=== PATIENT | male | born 1955 | race African-American/Black ===

== ENCOUNTER 2020-09-02 09:51 | Emergency (ER) | payer OTHER, BC ==
[2020-09-02 10:33] LABS: BASOPHILS % (AUTO) 0.8 % (0.0-5.0); EOSINOPHILS % (AUTO) 0.8 % (0.0-8.0); HEMATOCRIT 42.9 % (42-54); LYMPHOCYTES % (AUTO) 22.7 % (21.0-51.0); MEAN CORPUSCULAR HEMOGLOBIN 30.6 pg (27.0-33.0); MEAN CORPUSCULAR HGB CONC 34.7 g/dL (32.0-36.0); MEAN CORPUSCULAR VOLUME 88.1 fL (79-99); MONOCYTES % (AUTO) 9.1 % (3.0-13.0); NEUTROPHILS % (AUTO) 66.3 % (40.0-77.0); PLATELET COUNT (AUTO) 250 K/uL (130-400); RED BLOOD CELL COUNT(AUTO) 4.87 MIL/uL (4.50-6.20); RED CELL DISTRIBUTION WIDTH 12.9 % (11.0-15.5); WHITE BLOOD COUNT (AUTO) 3.8 K/uL (4.8-10.8)
[2020-09-02 10:46] LABS: INR 1.03 (0.85-1.15); PARTIAL THROMBOPLASTIN TIME 24.3 SEC (26.3-35.5); PROTHROMBIN TIME 11.1 SEC (9.6-11.6)
[2020-09-02 10:51] LABS: ALBUMIN 3.9 g/dL (3.5-5.0); BILIRUBIN,TOTAL 1.5 mg/dL (0.2-1.0); POTASSIUM 4.5 mmol/L (3.5-5.1); TOTAL PROTEIN, SERUM 7.2 g/dL (6.0-8.3)
[2020-09-02 10:56] LABS: B-TYPE NATRIURETIC PEPTIDE 6 pg/mL (0-100)
[2020-09-02 11:05] LABS: APPEARANCE,URINE CLOUDY (CLEAR); BILIRUBIN,URINE NEGATIVE (NEGATIVE); COLOR,URINE YELLOW (YELLOW); GLUCOSE, URINE (UA) NEGATIVE (NEGATIVE); KETONES,URINE NEGATIVE (NEGATIVE); LEUKOCYTE ESTERASE ,URINE LARGE (NEGATIVE); NITRATE,URINE POSITIVE (NEGATIVE); OCCULT BLOOD,URINE MODERATE (NEGATIVE); PH,URINE 6.5 (5.0-8.0); PROTEIN,URINE 100 mg/dL (NEGATIVE); UROBILINOGEN,URINE 0.2 mg/dL (0.2-1.0)
[2020-09-02] MEDS ORDERED: SODIUM CHLORIDE 0.9% 1000ML 1,000 ML IV ONE (11:22)
[2020-09-02 11:23] LABS: BACTERIA,URINE Many /HPF (None Seen); SQUAMOUS EPITHELIAL CELL,UR Rare /HPF (0-2); WBC,URINE 26-50 /HPF (0-1)
[2020-09-02] MEDS ORDERED: CEFTRIAXONE SODIUM 1 GM ONE (13:59)
== END 2020-09-02 15:18 | disposition home or self-care (01) ==
LOC: EDH 09:51
DX: T83.511A Infection and inflammatory reaction due to indwelling urethral catheter, initial encounter (principal); N30.00 Acute cystitis without hematuria; Y73.8 Miscellaneous gastroenterology and urology devices associated with adverse incidents, not elsewhere classified; Y92.89 Other specified places as the place of occurrence of the external cause
CPT/HCPCS: 36415; 76770; 80053; 81001; 82550; 83605; 83690; 83735; 83880; 84484; 85025; 85610; 85730; 87077; 87088; 87186; 93005; 96361; 96374; 99284; J0696; J7030

== ENCOUNTER 2020-09-14 19:06 | Inpatient (IN) | payer OTHER, BC ==
[~2020-09-14] VITALS: Ht 195.6 cm; Wt 66.0 kg
[2020-09-14 19:36] LABS: BASOPHILS % (AUTO) 0.6 % (0.0-5.0); EOSINOPHILS % (AUTO) 0.6 % (0.0-8.0); HEMATOCRIT 44.7 % (42-54); LYMPHOCYTES % (AUTO) 24.6 % (21.0-51.0); MEAN CORPUSCULAR HEMOGLOBIN 30.5 pg (27.0-33.0); MEAN CORPUSCULAR VOLUME 89.8 fL (79-99); MONOCYTES % (AUTO) 8.6 % (3.0-13.0); NEUTROPHILS % (AUTO) 65.3 % (40.0-77.0); PLATELET COUNT (AUTO) 240 K/uL (130-400); RED BLOOD CELL COUNT(AUTO) 4.98 MIL/uL (4.50-6.20); RED CELL DISTRIBUTION WIDTH 13.2 % (11.0-15.5); WHITE BLOOD COUNT (AUTO) 3.6 K/uL (4.8-10.8)
[2020-09-14 19:40] LABS: APPEARANCE,URINE CLEAR (CLEAR); BILIRUBIN,URINE LARGE (NEGATIVE); COLOR,URINE YELLOW (YELLOW); GLUCOSE, URINE (UA) NEGATIVE (NEGATIVE); KETONES,URINE 15 mg/dL (NEGATIVE); LEUKOCYTE ESTERASE ,URINE NEGATIVE (NEGATIVE); NITRATE,URINE NEGATIVE (NEGATIVE); OCCULT BLOOD,URINE TRACE-INTACT (NEGATIVE); PROTEIN,URINE 100 mg/dL (NEGATIVE); UROBILINOGEN,URINE 0.2 mg/dL (0.2-1.0)
[2020-09-14 19:49] LABS: CREATININE 1.4 mg/dL (0.5-1.5); POTASSIUM 3.4 mmol/L (3.5-5.1)
[2020-09-14 19:53] LABS: BILIRUBIN,TOTAL 5.5 mg/dL (0.2-1.0); TOTAL PROTEIN, SERUM 7.5 g/dL (6.0-8.3)
[2020-09-14 19:55] LABS: RBC,URINE 0-1 /HPF (0-1)
[2020-09-14 19:56] LABS: BACTERIA,URINE Few /HPF (None Seen); WBC,URINE 0-1 /HPF (0-1)
[2020-09-14] MEDS ORDERED: IOHEXOL-350 75 ML VIAL IV ONE (19:56)
[2020-09-14] MEDS ORDERED: LACTATED RINGERS 1000ML 1,000 ML IV ONE (22:00)
[2020-09-14 22:35] VITALS: BP 124/88
[2020-09-14] MEDS ORDERED: ACETAMINOPHEN 325 MG TAB PO PRN (23:45)
[2020-09-14] MEDS: LACTATED RINGERS 1000ML 1,000 ML IV SCH (23:45)
[2020-09-15 04:00] VITALS: BP 160/99
[2020-09-15 08:07] VITALS: BP 140/86
[2020-09-15] MEDS: ONDANSETRON HCL 4 MG/2 ML VIAL IVP PRN ×2 (08:19→17:03)
[2020-09-15] MEDS: LACTATED RINGERS 1000ML 1,000 ML IV SCH ×2 (08:22→17:03)
[2020-09-15] MEDS ORDERED: PANTOPRAZOLE SODIUM 40 MG TABLET.DR PO SCH (09:00)
[2020-09-15] MEDS ORDERED: LIDOCAINE HCL-MPF 1% 2ML VIAL IV PRN (10:45)
[2020-09-15] MEDS ORDERED: HYDRALAZINE HCL 20 MG/ML VIAL IV PRN (10:45)
[2020-09-15 11:10] LABS: BASOPHILS % (AUTO) 0.6 % (0.0-5.0); EOSINOPHILS % (AUTO) 0.4 % (0.0-8.0); HEMATOCRIT 44.4 % (42-54); LYMPHOCYTES % (AUTO) 17.3 % (21.0-51.0); MEAN CORPUSCULAR HEMOGLOBIN 30.3 pg (27.0-33.0); MEAN CORPUSCULAR HGB CONC 33.6 g/dL (32.0-36.0); MEAN CORPUSCULAR VOLUME 90.2 fL (79-99); MONOCYTES % (AUTO) 8.7 % (3.0-13.0); NEUTROPHILS % (AUTO) 71.8 % (40.0-77.0); PLATELET COUNT (AUTO) 228 K/uL (130-400); RED BLOOD CELL COUNT(AUTO) 4.92 MIL/uL (4.50-6.20); RED CELL DISTRIBUTION WIDTH 13.4 % (11.0-15.5); WHITE BLOOD COUNT (AUTO) 5.2 K/uL (4.8-10.8)
[2020-09-15] MEDS: MORPHINE SULFATE 2 MG/ML 1ML SYG IVP PRN ×2 (11:11→19:11)
[2020-09-15 12:10] VITALS: BP 126/83
[2020-09-15] MEDS ORDERED: GLUCAGON 1MG KIT 1 MG ML IM PRN (14:45)
[2020-09-15] MEDS ORDERED: DEXTROSE 50%-WATER 50 ML DISP.SYRIN IV PRN (14:45)
[2020-09-15] MEDS: INSULIN HUMULIN R 100 UNIT/ML 3ML SQ SCH ×2 (16:30→19:39)
[2020-09-15 16:50] VITALS: BP 121/80
--- NOTE | 2020-09-15 16:52 | NUR ---
INITIAL: Met with pt this afternoon to discuss dcp. Pt mentions that he lives w his spouse and 2 adult children. Prior to admission he was independent w ambulation and ADLS. He has a FWW and cane avail. if needed. Per pt he feels safe and comfortable to return home at co. CM to continue to follow and wait for Md recommendations. Addendum: 09/15/20 at 1653 by MEAGAN ADAMSON Amended: Links added.
[2020-09-15 17:29] LABS: BASOPHILS % (AUTO) 0.5 % (0.0-5.0); EOSINOPHILS % (AUTO) 0.2 % (0.0-8.0); HEMATOCRIT 44.9 % (42-54); LYMPHOCYTES % (AUTO) 17.7 % (21.0-51.0); MEAN CORPUSCULAR HEMOGLOBIN 30.3 pg (27.0-33.0); MEAN CORPUSCULAR HGB CONC 33.6 g/dL (32.0-36.0); MEAN CORPUSCULAR VOLUME 90.2 fL (79-99); MONOCYTES % (AUTO) 8.5 % (3.0-13.0); NEUTROPHILS % (AUTO) 72.9 % (40.0-77.0); PLATELET COUNT (AUTO) 228 K/uL (130-400); RED BLOOD CELL COUNT(AUTO) 4.98 MIL/uL (4.50-6.20); RED CELL DISTRIBUTION WIDTH 13.6 % (11.0-15.5); WHITE BLOOD COUNT (AUTO) 4.1 K/uL (4.8-10.8)
[2020-09-15 17:51] LABS: INR 1.14 (0.85-1.15); PROTHROMBIN TIME 12.3 SEC (9.6-11.6)
[2020-09-15 17:55] LABS: ALBUMIN 3.8 g/dL (3.5-5.0); BILIRUBIN,TOTAL 5.7 mg/dL (0.2-1.0); CREATININE 1.2 mg/dL (0.5-1.5); POTASSIUM 3.1 mmol/L (3.5-5.1); TOTAL PROTEIN, SERUM 7.3 g/dL (6.0-8.3)
[2020-09-15 19:00] VITALS: BP 112/78
[2020-09-15] MEDS: PANTOPRAZOLE 40 MG/VIAL IVP SCH (19:38)
[2020-09-15] MEDS: POTASSIUM CHLORIDE 20MEQ/100ML 100 ML IV PRN ×2 (19:44→22:03)
[2020-09-15 23:57] VITALS: BP 148/83
[2020-09-16] VITALS (19 sets, daily range): BP systolic 113–170; BP diastolic 71–108
[2020-09-16] MEDS: MORPHINE SULFATE 4 MG/1ML SYG IV PRN ×2 (00:57→15:33)
[2020-09-16] MEDS: LACTATED RINGERS 1000ML 1,000 ML IV SCH ×2 (05:40→15:37)
[2020-09-16] MEDS: INSULIN HUMULIN R 100 UNIT/ML 3ML SQ SCH ×4 (05:45→20:11)
[2020-09-16 06:55] LABS: ALBUMIN 3.7 g/dL (3.5-5.0); BILIRUBIN,TOTAL 5.2 mg/dL (0.2-1.0); CREATININE 1.2 mg/dL (0.5-1.5); POTASSIUM 3.4 mmol/L (3.5-5.1); TOTAL PROTEIN, SERUM 7.2 g/dL (6.0-8.3)
[2020-09-16] MEDS ORDERED: PROPOFOL 10 MG/ML 20ML VIAL IV ONE (07:12)
[2020-09-16 08:24] LABS: BASOPHILS % (AUTO) 0.5 % (0.0-5.0); EOSINOPHILS % (AUTO) 0.5 % (0.0-8.0); HEMATOCRIT 44.7 % (42-54); LYMPHOCYTES % (AUTO) 26.2 % (21.0-51.0); MEAN CORPUSCULAR HGB CONC 32.2 g/dL (32.0-36.0); MEAN CORPUSCULAR VOLUME 93.1 fL (79-99); MONOCYTES % (AUTO) 8.9 % (3.0-13.0); NEUTROPHILS % (AUTO) 63.7 % (40.0-77.0); PLATELET COUNT (AUTO) 224 K/uL (130-400); RED CELL DISTRIBUTION WIDTH 13.9 % (11.0-15.5)
[2020-09-16 08:42] LABS: INR 1.14 (0.85-1.15); PROTHROMBIN TIME 12.3 SEC (9.6-11.6)
--- NOTE | 2020-09-16 09:30 | NUR ---
PT RETURNED FROM [facility], AWAKENS EASILY WITH VERBAL STIMULATION, NO ANXIETY OR DISTRESS, DENIES PAIN. CALL LIGHT WITHIN REACH
[2020-09-16] MEDS: PANTOPRAZOLE 40 MG/VIAL IVP SCH ×2 (09:44→20:48)
[2020-09-16] MEDS: MORPHINE SULFATE 2 MG/ML 1ML SYG IVP PRN ×2 (09:45→22:46)
[2020-09-16] MEDS: ONDANSETRON HCL 4 MG/2 ML VIAL IVP PRN ×2 (12:40→18:47)
[2020-09-17] MEDS: LACTATED RINGERS 1000ML 1,000 ML IV SCH ×2 (01:19→11:58)
[2020-09-17] MEDS: ONDANSETRON HCL 4 MG/2 ML VIAL IVP PRN (03:35)
[2020-09-17] MEDS: MORPHINE SULFATE 2 MG/ML 1ML SYG IVP PRN (03:35)
[2020-09-17 03:54] VITALS: BP 152/93
[2020-09-17] MEDS: INSULIN HUMULIN R 100 UNIT/ML 3ML SQ SCH ×2 (05:34→11:30)
[2020-09-17 07:53] VITALS: BP 149/90
[2020-09-17] MEDS: PANTOPRAZOLE 40 MG/VIAL IVP SCH (08:56)
[2020-09-17] MEDS ORDERED: IOHEXOL-350 50ML VIAL IV ONE (11:06)
[2020-09-17 12:00] VITALS: BP 146/94
--- NOTE | 2020-09-17 13:00 | NUR ---
DISCUSSED PLAN OF CARE WITH PATIENT, RN AND GI LAB STAFF, EARLIER PATIENT ADAMANT WILL NOT STAY, DELAY IN PROCEDURE BECAUSE PATIENT DID NOT STAY NPO, UNABLE TO HAVE PROCEDURE TODAY, EXPLAINED BY STAFF, PATIENT DOES NOT WANT TO STAY UNTIL TOMORROW, VERY LOUD VOICE, CURSING PATIENT DENIES PAIN OR NAUSEA AND STATES HE JUST WANTS TO LEAVE TO GO HOME. W/CHAIR AND BRACES (?) NOTED IN THE ROOM AT BEDSIDE . PATIENT MAKING ARRANGEMENTS HIMSELF FOR STRATEGIC CLIENT EXECUTIVE CM TO FOLLOW IF REQUESTED. Addendum: 09/17/20 at 1442 by CHARLOTTE TAMAYO RN CM Amended: Links added.
--- NOTE | 2020-09-17 13:40 | NUR ---
Patient upset that ERCP will not be done today as he did eat clear liquids after being advised not to. and is requesting to leave AMA he was made aware of the benefit of having the stent placed from GI team. Does not want to stay case investigator also spoke with patient Dr. Fitzpatrick and Trina VOCATIONAL CASE MANAGER aware.
== END 2020-09-17 14:05 | disposition left against medical advice (07) | DRG 439 ==
LOC: EDH 19:06 → EDHIP 21:30 → OBSVTOIN 21:30 → 4DH 22:37
PROVIDERS: ADMIT Internal Medicine Critical Care Medicine; ATTEND Internal Medicine Critical Care Medicine
PROC: 0FBG8ZX Excision of Pancreas, Via Natural or Artificial Opening Endoscopic, Diagnostic (ICD-10-PCS; principal; 2020-09-16)
DX: K86.9 Disease of pancreas, unspecified (principal); Z68.1 Body mass index [BMI] 19.9 or less, adult; R64 Cachexia; K86.89 Other specified diseases of pancreas; E86.0 Dehydration; I10 Essential (primary) hypertension; N40.0 Benign prostatic hyperplasia without lower urinary tract symptoms; R74.01 Elevation of levels of liver transaminase levels; L53.8 Other specified erythematous conditions; K31.89 Other diseases of stomach and duodenum; Z20.828 Contact with and (suspected) exposure to other viral communicable diseases
CPT/HCPCS: 36415; 43238; 74178; 80053; 81001; 82150; 82378; 82948; 83605; 84484; 85025; 85610; 86316; 87426; 93005; 99291; A4606; C9113; G0378; J2270; J2405; J2704; J3480; J7030; J7120; Q9967